=== PATIENT | female | born 2000 | race African-American/Black ===

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

== ENCOUNTER 2023-12-31 23:44 | Emergency (ER) | payer MEDICAID ==
[~2023-12-31] VITALS: Ht 167.6 cm; Wt 58.0 kg
[2023-12-31 23:47] VITALS: BP 116/63; PULSE 84; RESP 16; TEMP 99.4; O2SAT 100
[2024-01-01] MEDS: METOCLOPRAMIDE HCL 10MG/2ML VIAL IV ONE (00:43)
[2024-01-01] MEDS: DEXAMETHASONE 10 MG/ML VIAL IV ONE (00:43)
[2024-01-01] MEDS: KETOROLAC 15MG/ML VIAL IV ONE (00:43)
[2024-01-01] MEDS: SODIUM CHLORIDE 0.9% 1,000 ML IV ONE (00:43)
[2024-01-01 01:07] LABS: HCG SCREEN NEGATIVE
[2024-01-01] MEDS ORDERED: IBUP-2029 MT (01:35)
[2024-01-01] MEDS ORDERED: METO-293 MT (01:35)
== END 2024-01-01 01:58 | disposition home or self-care (01) ==
LOC: ER 01-01 00:02
DX: G43.909 Migraine, unspecified, not intractable, without status migrainosus (principal); F12.10 Cannabis abuse, uncomplicated
CPT/HCPCS: 84703; 96361; 96374; 96375; 99284; J1100; J1885; J2765; J7030; Z7610

== ENCOUNTER 2024-01-06 00:07 | Emergency (ER) | payer MEDICAID ==
[~2024-01-06] VITALS: Ht 165.1 cm; Wt 50.0 kg
[~2024-01-06 00:07] MED LIST: IBUP-2029 MT; METO-293 MT
[2024-01-06] MEDS: KETOROLAC 15MG/ML VIAL IV ONE (00:30)
[2024-01-06] MEDS: DEXAMETHASONE 10 MG/ML VIAL IV ONE (00:30)
[2024-01-06] MEDS: METOCLOPRAMIDE HCL 10MG/2ML VIAL IV ONE (00:30)
[2024-01-06 00:33] VITALS: O2SAT 99
[2024-01-06 03:30] LABS: HCG SCREEN NEGATIVE
[2024-01-06] MEDS: KETOROLAC 15MG/ML VIAL IV SCH (03:55)
[2024-01-06] MEDS: DEXAMETHASONE 10 MG/ML VIAL IV SCH (03:55)
[2024-01-06] MEDS: METOCLOPRAMIDE HCL 10MG/2ML VIAL IV SCH (03:55)
[2024-01-06] MEDS: SODIUM CHLORIDE 0.9% 1,000 ML IV ONE (03:56)
[2024-01-06 04:30] VITALS: BP 121/89; PULSE 75; RESP 16; TEMP 36.66960; O2SAT 100
== END 2024-01-06 04:30 | disposition home or self-care (01) ==
LOC: ER 00:07
DX: G43.009 Migraine without aura, not intractable, without status migrainosus (principal); F12.90 Cannabis use, unspecified, uncomplicated
CPT/HCPCS: 84703; 96361; 96374; 96375; 99284; J1100; J1885; J2765; J7030; Z7610 ×2

== ENCOUNTER 2024-05-24 10:40 | Emergency (ER) | payer MEDICAID ==
[~2024-05-24] VITALS: Ht 165.1 cm; Wt 55.0 kg
[2024-05-24 10:46] VITALS: TEMP 37.2; O2SAT 99
[2024-05-24] MEDS: DEXAMETHASONE 4MG/ML 1ML VIAL IV ONE (12:13)
[2024-05-24 12:16] VITALS: BP 113/81; PULSE 98; RESP 16
[2024-05-24] MEDS: KETOROLAC 30MG/ML VIAL IV STA (12:16)
[2024-05-24] MEDS: CARBAMAZEPINE 100MG TABLET CHEW PO ONE (12:21)
[2024-05-24] MEDS: SODIUM CHLORIDE 0.9% 1,000 ML IV ONE (12:22)
[2024-05-24] MEDS: METOCLOPRAMIDE HCL 10MG/2ML VIAL IV ONE (12:23)
== END 2024-05-24 13:23 | disposition left against medical advice (07) ==
LOC: ER 10:56
DX: G50.0 Trigeminal neuralgia (principal); Z79.52 Long term (current) use of systemic steroids
CPT/HCPCS: 99284; 96374; 96375; 96361; J1885; J1100; J2765; J7030